=== PATIENT | male | born 1980 | race Caucasian/White ===

== ENCOUNTER 2020-06-26 15:50 | Observation (INO) | payer OTHER ==
[~2020-06-26] VITALS: Ht 175.3 cm; Wt 81.0 kg
[2020-06-26] VITALS (9 sets, daily range): BP systolic 112–128; BP diastolic 68–93; PULSE 42–88; TEMP 97.8–99
[~2020-06-26 15:50] MED LIST: CLEOCIN HCL300 MG PO; LORTAB 7.5/5001 TAB PO; MOBIC 7.5MG7.5 MG PO; PROAIR HFA0.09 MG/AC IH
--- NOTE | 2020-06-26 19:41 | NUR ---
Arrived to medical floor at 1920. Assessment complete. Lungs clear. Heart sounds normal. Bowels active x4. Pulses present throughout. No edema noted. INT right hand without complications. Reports 5/10 pain. Provided with PRN norco. Provided with water and jello. Will monitor. Call light in reach.
--- NOTE | 2020-06-26 23:37 | NUR ---
Reports pain 6/10 in ABD. Provided with PRN pain meds at this time. Call light in reach. Denies other needs.
--- NOTE | 2020-06-27 02:22 | NUR ---
Resting in bed asleep. Call light in reach.
[2020-06-27 04:14] VITALS: BP 107/65; PULSE 59; TEMP 98
--- NOTE | 2020-06-27 06:11 | NUR ---
Patient required norco for pain control throughout night. Ambulating within room. Otherwise uneventful night. Resting in bed this AM. Call light in reach.
--- NOTE | 2020-06-27 07:02 | NUR ---
Report given to SHEREE Jang
[2020-06-27 08:07] VITALS: BP 112/69; PULSE 83; TEMP 98.3
[2020-06-27] MEDS ORDERED: NORCO 325 MG-51 TAB PO (08:11)
--- NOTE | 2020-06-27 09:11 | NUR ---
Pt awake and alert upon entry, no C /O pain at this time, shift assessments complete, left Pt call light in reach, bed in lowest position.
--- NOTE | 2020-06-27 10:13 | NUR ---
Pt discharged to home, discussed discharge instructions with Pt, no questions. escorted Pt to entrance, left with spouse via private auto.
== END 2020-06-27 10:00 | disposition home or self-care (01) ==
LOC: SDCO 15:50 → MEDICAL 19:23
PROVIDERS: ADMIT Surgery
DX: K35.80 Unspecified acute appendicitis (principal); F17.210 Nicotine dependence, cigarettes, uncomplicated
CPT/HCPCS: G0008; G0378; J0690; J1100; J1885; J2270; J2405; J2704; J3010; J7120